=== PATIENT | female | born 1980 | race Caucasian/White ===

== ENCOUNTER 2018-03-02 12:40 | Emergency (ER) | payer BC ==
[2018-03-02] MEDS ORDERED: LORazepam 0.5 MG Tab PO ONE (13:40)
--- NOTE | 2018-03-02 13:45 | EDM.PDOC ---
ED HPI GENERAL MEDICAL PROBLEM - General Chief Complaint: Behavioral/Psych Stated Complaint: ANXIETY Time Seen by Provider: 03/02/18 13:09 - History of Present Illness INITIAL COMMENTS - FREE TEXT/NARRATIVE: This is a 37-year-old female accompanied by , who has a previous history of depression today presented with the machine department for evaluation of anxiety attack. She stated that she has been having multiple social stressors in the last few days and had a anxiety type attack last night and today she has been having multiple anxiety attacks, therefore she came to the emergency department for further evaluation. She denies any history of smoking or drug abuse. She stated that she has been taking Wellbutrin for depression and had recent IUD placed in October 2017. Currently she complains of racing of her heart, and anxiety symptoms. She denies any medication use to alleviate symptoms prior to arrival. She denies any recent traveling or known sick contacts. She denies any chest pain or shortness of breath,headache, dizziness, visual changes , numbness or tingling, weakness, back pain, neck pain, abdominal pain, nausea or vomiting, or vertigo type symptoms. She denies any other concern at this time. Chest Pain Score (Numeric/FACES): 3 - Related Data Allergies Allergy/AdvReac Type Severity Reaction Status Date / Time Penicillins Allergy Anaphylactic Verified 03/02/18 12:57 Shock bee stings Allergy Anaphylactic Uncoded 03/02/18 12:57 Shock Home Meds: Home Meds buPROPion [Wellbutrin] 75 mg PO BID 03/02/18 [History] hydrOXYzine pamoate [Vistaril] 25 mg PO Q8H PRN #21 cap 03/02/18 [Rx] Past Medical History Psychiatric History: Reports: Anxiety, Depression - Past Surgical History Female Surgical History: Reports: Section Social & Family History - Tobacco Use Smoking Status *Q: Never Smoker - Caffeine Use Caffeine Use: Reports: Coffee, Energy Drinks, Soda, Tea - Recreational Drug Use Recreational Drug Type: Reports: Marijuana/Hashish Other Recreational Drug Type: sometines marijuana in the evening 5-7 times per week for calming purposes ED ROS GENERAL - Review of Systems Review Of Systems: ROS reveals no pertinent complaints other than HPI. - Physical Exam Exam: See Below Exam Limited By: No Limitations General Appearance: Alert, No Apparent Distress, Anxious Ears: Normal External Exam, Normal Canal, Hearing Grossly Normal, Normal TMs Nose: Normal Inspection, Normal Mucosa, No Blood Throat/Mouth: Normal Inspection, Normal Lips, Normal Teeth, Normal Gums, Normal Oropharynx, Normal Voice, No Airway Compromise Head Exam: Atraumatic, Normocephalic Neck: Normal Inspection, Supple, Non-Tender, Full Range of Motion Respiratory/Chest: No Respiratory Distress, Lungs Clear, Normal Breath Sounds Cardiovascular: Normal Peripheral Pulses, Regular Rate, Rhythm, No Edema, No Murmur GI/Abdominal: Normal Bowel Sounds, Soft, Non-Tender Neuro Exam (Abbreviated): Alert, Oriented, Normal Cognition Extremities: Normal Inspection, Normal Range of Motion, Non-Tender, No Pedal Edema, Normal Capillary Refill Psychiatric: Normal Affect, Anxious Skin Exam: Warm, Dry, Intact, Normal Color, No Rash Course - Vital Signs Last Recorded V/S: Last Vital Signs Temp 36.6 C 03/02/18 12:51 Pulse 73 03/02/18 12:51 Resp 20 03/02/18 12:51 BP 136/99 H 03/02/18 12:51 Pulse Ox 98 03/02/18 12:51 - Orders/Labs/Meds Orders: Active Orders 24 hr Category Date Time Status EKG Documentation Completion [RC] STAT Care 03/02/18 13:40 Active Labs: Laboratory Tests 03/02/18 03/02/18 Range/Units 12:45 12:45 WBC 10.31 H (3.98-10.04) K/mm3 RBC 4.76 (3.98-5.22) M/mm3 Hgb 13.3 (11.2-15.7) gm/L Hct 41.7 (34.1-44.9) % MCV 87.6 (79.4-94.8) fl MCH 27.9 (25.6-32.2) pg MCHC 31.9 L (32.2-35.5) g/dl RDW Std Deviation 43.6 (36.4-46.3) fL Plt Count 400 H (182-369) K/mm3 MPV 9.9 (9.4-12.3) fl Neut % (Auto) 68.9 (34.0-71.1) % Lymph % (Auto) 23.4 (19.3-51.7) % [place]oke % (Auto) 5.8 (4.7-12.5) % Eos % (Auto) 1.3 (0.7-5.8) Baso % (Auto) 0.2 (0.1-1.2) % Neut # (Auto) 7.11 H (1.56-6.13) K/mm3 Lymph # (Auto) 2.41 (1.18-3.74) K/mm3 [place]oke # (Auto) 0.60 H (0.24-0.36) K/mm3 Eos # (Auto) 0.13 (0.04-0.36) K/mm3 Baso # (Auto) 0.02 (0.01-0.08) K/mm3 Sodium 137 (136-145) mEq/L Potassium 3.8 (3.5-5.1) mEq/L Chloride 100 (98-107) mEq/L Carbon Dioxide 28 (21-32) mEq/L Anion Gap 12.8 (5-15) BUN 10 (7-18) mg/dL Creatinine 0.7 (0.55-1.02) mg/dL Est Cr Clr Drug Dosing 98.05 mL/min Estimated GFR (MDRD) > 60 (>60) mL/min BUN/Creatinine Ratio 14.3 (14-18) Glucose 95 (74-106) mg/dL Calcium 9.4 (8.5-10.1) mg/dL Total Bilirubin 0.3 (0.2-1.0) mg/dL AST 19 (15-37) U/L ALT 25 (14-59) U/L Alkaline Phosphatase 93 (46-116) U/L Total Protein 8.3 H (6.4-8.2) g/dl Albumin 3.9 (3.4-5.0) g/dl Globulin 4.4 gm/dL Albumin/Globulin Ratio 0.9 L (1-2) TSH 3rd Generation 2.184 (0.358-3.74) uIU/mL Meds: Medications Discontinued Medications Generic Name Dose Route Start Last Admin Trade Name Freq PRN Reason Stop Dose Admin Lorazepam 0.5 mg 03/02/18 13:40 03/02/18 13:55 Ativan PO 03/02/18 13:41 0.5 mg ONETIME ONE Administration Pantoprazole Sodium 40 mg 03/02/18 14:38 03/02/18 14:42 Protonix Iv IVPUSH 03/02/18 14:39 40 mg ONETIME ONE Administration - Re-Assessments/Exams Free Text/Narrative Re-Assessment/Exam: 03/02/18 14:30. Patient reevaluated at this time. Patient appears to be relaxed and resting comfortably on the stretcher. She stated that medicine for anxiety helps her relief. Currently she denies any chest tightness, chest pain, shortness of breath, headache, dizziness, visual changes. She denies any pain in general. Patient has been advised to avoid excessive stress on daily basis as well as practice non-pharmacological therapy including use of Yoga, relaxation technique , listening to soothing music, etc. to alleviate stress and anxiety type reaction. Patient and available family member verbalize understanding of the given instruction and agrees to comply Departure - Departure Time of Disposition: 14:52 Disposition: Home, Self-Care 01 Condition: Good Clinical Impression: Anxiety in acute stress reaction - Discharge Information Prescriptions: hydrOXYzine pamoate [Vistaril] 25 mg PO Q8H PRN #21 cap PRN Reason: Anxiety Instructions: Living With Anxiety, Stress Referrals: Samson Vang MD [Primary Care Provider] - 1 Week (Please follow up with her primary care provider to reevaluate the symptoms of the today emergency visit) Forms: ED Department Discharge Additional Instructions: Patient has been advised to return immediately to the emergency department if she develops pressure in her chest, chest tightness, shortness of breath, dizziness, or any other worsening symptoms. - My Orders Last 24 Hours: My Active Orders 03/02/18 13:40 EKG Documentation Completion [RC] STAT - Assessment/Plan Last 24 Hours: My Active Orders 03/02/18 13:40 EKG Documentation Completion [RC] STAT
[2018-03-02] MEDS ORDERED: Pantoprazole 40 MG Vial IVPUSH ONE (14:38)
== END 2018-03-02 15:21 | disposition home or self-care (01) ==
LOC: JD.ED 12:40
DX: F41.9 Anxiety disorder, unspecified (principal); F43.0 Acute stress reaction; Z88.0 Allergy status to penicillin; Z91.030 Bee allergy status
CPT/HCPCS: 36415; 80053; 84443; 85025; 93005; 96374; 99284; A9270; C9113